=== PATIENT | male | born 1980 | race Asian ===

== ENCOUNTER 2017-02-23 19:28 | Emergency (ER) | payer BC ==
[2017-02-23 19:38] VITALS: BP 116/68
--- NOTE | 2017-02-23 19:44 | UC ---
Skin Complaint HPI - HPI Summary HPI Summary: patches of itchy dry skin on neck similar episode in the past rx with clobetasol with good effect - History of Current Complaint Chief Complaint: UCRash Time Seen by Provider: 02/23/17 19:33 Stated Complaint: RASH ON NECK Hx Obtained From: Patient Onset/Duration: Gradual Onset, Lasting Days, Still Present Timing: Constant Onset Severity: Mild Current Severity: Mild Location: Discrete Aggravating: Nothing Alleviating: Nothing Associated Signs & Symptoms: Positive: Negative - Allergy/Home Medications Allergies/Adverse Reactions: Allergies Allergy/AdvReac Type Severity Reaction Status Date / Time No Known Allergies Allergy Verified 02/23/17 19:38 Review of Systems Constitutional: Negative Skin: Rash - patches of dry red flaky skin on neck and upper shoulders Eyes: Negative ENT: Negative Respiratory: Negative Cardiovascular: Negative Gastrointestinal: Negative Genitourinary: Negative Motor: Negative Neurovascular: Negative Musculoskeletal: Negative Neurological: Negative Psychological: Negative All Other Systems Reviewed And Are Negative: Yes PMH/Surg Hx/FS Hx/Imm Hx Previously Healthy: Yes - Surgical History Surgical History: None - Family History Known Family History: Positive: None - Social History Occupation: Student Lives: With Family Alcohol Use: None Substance Use Type: None Smoking Status (MU): Never Smoked Tobacco Physical Exam Triage Information Reviewed: Yes Appearance: Well-Appearing, No Pain Distress, Well-Nourished Vital Signs: Initial Vital Signs Temp 99.1 F 02/23/17 19:35 Pulse 85 02/23/17 19:35 Resp 16 02/23/17 19:35 BP 116/68 02/23/17 19:35 Pulse Ox 98 02/23/17 19:35 Vital Signs Reviewed: Yes Eye Exam: Normal Eyes: Positive: Conjunctiva Clear ENT Exam: Normal ENT: Positive: Normal ENT inspection, Hearing grossly normal. Negative: Nasal congestion, Nasal drainage, Trismus, Muffled/hoarse voice Dental Exam: Normal Neck exam: Normal Neck: Positive: Supple, Nontender Respiratory Exam: Normal Respiratory: Positive: Chest non-tender, No respiratory distress, No accessory muscle use Cardiovascular Exam: Normal Cardiovascular: Positive: RRR, Pulses Normal, Brisk Capillary Refill Musculoskeletal Exam: Normal Musculoskeletal: Positive: Strength Intact, ROM Intact, No Edema Neurological Exam: Normal Neurological: Positive: Alert, Muscle Tone Normal Psychological Exam: Normal Skin Exam: Normal Skin: Positive: rashes Course/Dx - Course Course Of Treatment: mild soap and water wash, clobetasol BID - Differential Diagnoses - Skin Complaint Differential Diagnoses: Cellulitis, Contact Dermatitis, Tinea - Diagnoses Provider Diagnoses: Atopic Dermititis Discharge - Discharge Plan Condition: Stable Disposition: HOME Prescriptions: Clobetasol 0.05% OINT* 1 applic TOPICAL BID #60 gm Patient Education Materials: Eczema (ED) Referrals: Wilfredo Melendez MD [Medical Doctor] - If Needed
== END 2017-02-23 19:55 | disposition home or self-care (01) ==
LOC: UCEAST 19:28
DX: L20.9 Atopic dermatitis, unspecified (principal)
CPT/HCPCS: 99202; G0463

== ENCOUNTER 2018-01-29 17:14 | Emergency (ER) | payer BC ==
--- NOTE | 2018-01-29 17:35 | UC ---
Respiratory Complaint HPI - HPI Summary HPI Summary: cough for 5 days --has been using Turkish medicine (he does not know what) that did not help--daughter has similar c/o and seen pcp dx with uri--,patient denies fever, sinus pain or vomiting - History of Current Complaint Chief Complaint: UCRespiratory Stated Complaint: COUGH Time Seen by Provider: 01/29/18 17:28 Hx Obtained From: Patient Onset/Duration: Sudden Onset, Lasting Days - 5, Still Present Timing: Constant Character: Cough: Nonproductive Aggravating Factors: Nothing Alleviating Factors: Nothing Associated Signs And Symptoms: Positive: URI - Allergies/Home Medications Allergies/Adverse Reactions: Allergies Allergy/AdvReac Type Severity Reaction Status Date / Time No Known Allergies Allergy Verified 02/23/17 19:38 PMH/Surg Hx/FS Hx/Imm Hx Previously Healthy: Yes - Surgical History Surgical History: None - Family History Known Family History: Positive: None - Social History Occupation: Employed Full-time Lives: With Family Alcohol Use: None Substance Use Type: None Smoking Status (MU): Never Smoked Tobacco Review of Systems Constitutional: Negative Skin: Negative Eyes: Negative ENT: Negative Respiratory: Cough Cardiovascular: Negative Gastrointestinal: Negative Genitourinary: Negative Motor: Negative Neurovascular: Negative Musculoskeletal: Negative Neurological: Negative Psychological: Negative Is Patient Immunocompromised?: No All Other Systems Reviewed And Are Negative: Yes Physical Exam Triage Information Reviewed: Yes Appearance: Well-Appearing, No Pain Distress, Well-Nourished Vital Signs Reviewed: Yes Eye Exam: Normal Eyes: Positive: Conjunctiva Clear ENT Exam: Normal ENT: Positive: Normal ENT inspection, Hearing grossly normal, Pharynx normal, TMs normal, Uvula midline. Negative: Nasal congestion, Nasal drainage, Trismus , Muffled voice, Hoarse voice, Sinus tenderness Dental Exam: Normal Neck exam: Normal Neck: Positive: Supple, Nontender, No Lymphadenopathy Respiratory Exam: Normal Respiratory: Positive: Chest non-tender, Lungs clear, Normal breath sounds, No respiratory distress, No accessory muscle use Cardiovascular Exam: Normal Cardiovascular: Positive: RRR, No Murmur, Pulses Normal, Brisk Capillary Refill Musculoskeletal Exam: Normal Musculoskeletal: Positive: Strength Intact, ROM Intact, No Edema Neurological Exam: Normal Neurological: Positive: Alert, Muscle Tone Normal Psychological Exam: Normal Skin Exam: Normal Respiratory Course/Dx - Course Course Of Treatment: increase fluids, zyrtec and tessalon for sx relief follow with pcp prn (referral made) - Differential Dx/Diagnosis Provider Diagnoses: URI Discharge - Sign-Out/Discharge Documenting (check all that apply): Patient Departure - Discharge Plan Condition: Stable Disposition: HOME Prescriptions: Benzonatate CAP* [Tessalon 100 MG CAP*] 100 - 200 mg PO TID PRN #40 cap PRN Reason: Cough Cetirizine* [ZyrTEC 10 MG TAB*] 10 mg PO DAILY #14 tab Patient Education Materials: Cold Symptoms (ED) Referrals: [facility] [place] [facility] [Outside] - If Needed - Billing Disposition and Condition Condition: STABLE Disposition: Home
[2018-01-29 17:38] VITALS: BP 102/71
== END 2018-01-29 17:50 | disposition home or self-care (01) ==
LOC: UCEAST 17:14
DX: J06.9 Acute upper respiratory infection, unspecified (principal)
CPT/HCPCS: 99212; G0463

== ENCOUNTER 2018-04-01 17:37 | Emergency (ER) | payer BC ==
--- NOTE | 2018-04-01 17:42 | UC ---
Ear Complaint HPI - HPI Summary HPI Summary: 37 y/o male presents to the urgent care c/o Rt ear pain since this afternoon w / some yellowish discharge when he tried to cleaned w/ a swab. Pain is 3/10 associated w/ a headache and fullness sensation. Pt denies dizziness, decrease hearing, fever, SOB, chest pain, abdominal pain, N/V/D. Pt has not taking anything to alleviate symptoms. - History of Current Complaint Stated Complaint: EAR COMPLAINT Time Seen by Provider: 04/01/18 17:40 Hx Obtained From: Patient Onset/Duration: Gradual Onset, Lasting Days, Still Present Severity Initially: Mild Severity Currently: Mild Pain Intensity: 3 Pain Scale Used: 0-10 Numeric Aggravating Factors: Other - touch Alleviating Factors: Nothing Associated Signs/Symptoms: Positive: Discharge - Allergies/Home Medications Allergies/Adverse Reactions: Allergies Allergy/AdvReac Type Severity Reaction Status Date / Time No Known Allergies Allergy Verified 02/23/17 19:38 Home Medications: Home Medications NK [No Home Medications Reported] 04/01/18 [History Confirmed 04/01/18] PMH/Surg Hx/FS Hx/Imm Hx Previously Healthy: Yes - PT denies PMHX - Surgical History Surgical History: None - Family History Family History: Lung Cancer - Social History Occupation: Employed Full-time Lives: With Family Alcohol Use: None Substance Use Type: None Smoking Status (MU): Never Smoked Tobacco Review of Systems Constitutional: Negative Skin: Negative Eyes: Negative ENT: Ear Ache - Rt ear pain w/ yellowish discharge Respiratory: Negative Cardiovascular: Negative Gastrointestinal: Negative Genitourinary: Negative Motor: Negative Neurovascular: Negative Musculoskeletal: Negative Neurological: Headache Psychological: Negative Is Patient Immunocompromised?: No All Other Systems Reviewed And Are Negative: Yes Physical Exam - Summary Physical Exam Summary: Vital signs: reviewed General: well developed, well nourished male sitting in the examining table w/o any apparent distress Skin: [place], warm and dry, no evidence of atopic dermatitis, psoriasis, seborrhea. HEENT: -Head: atraumatic, non tender; no scalp dermatitis. -Eyes: sclera and conjunctiva clear, PERRLA, EOMI -Ears: no pre- or postauricular lymphadenopathy or erythema; RT external ear canal with erythema and yellowish purulent discharge, pinna tenderness on palpation, Rt TM WNL, LF external ear canal clear and LF TM WNL. TMs normal w/ out bulging or retraction. Good light reflex. No fluid level, vesicles, or bullae. No perforation. -Nose/Face: erythematous and edematous nasal mucosa with clear rhinorrhea, no frontal or maxillary sinus tender to palpation. -Mouth/Throat: Mucous membrane moist, posterior pharynx clear, no erythema or exudates. Neck: supple, FROM, nontender, no lymphadenopathy, no meningismus. Chest: Clear to auscultation, normal breath sounds Abd: soft, Bowel sounds active, Nontender. Back: no spinal or CVAT Neuro: A&O x4, GCS 15, no focal neuro deficits, normal behavior for age. Triage Information Reviewed: Yes Ear Complaint Course/Dx - Course Course Of Treatment: 37 y/o male presents to the urgent care c/o Rt ear pain since this afternoon w/ some yellowish discharge when he tried to cleaned w/ a swab. Pain is 3/10 associated w/ a headache and fullness sensation. Pt denies dizziness, decrease hearing, fever, SOB, chest pain, abdominal pain, N/V/D. Pt has not taking anything to alleviate symptoms. Hx otbatined. pt w/ Rt otitis externa on examination. Pt given Cortisporin otic drops at the clinic since pharnacy is close today. Advised to take ibuprofen PO OTC for pain. If symptoms do not improve or worsen to return to the urgent care or f/u with PCP for further management. Pt understood and agreed with D/C instructions. - Differential Dx/Diagnosis Differential Diagnosis/HQI/PQRI: Cerumen Impaction, Otitis Externa, Otitis Media , Perforated TM, URI Provider Diagnoses: 1- Rt otitis externa. 2- Otalgia Discharge - Sign-Out/Discharge Documenting (check all that apply): Patient Departure - D/C home All imaging exams completed and their final reports reviewed: No Studies - Discharge Plan Condition: Stable Disposition: HOME Patient Education Materials: Otitis Externa (ED) Referrals: [facility] [place] [facility] [Outside] - 3 Days Additional Instructions: 1-Please apply otic antibiotic on your Rt ear as directed. 2-Take ibuprofen PO q6-8hrs after meals for pain. 3-If symptoms do not improve or worsen please f/u with your PCP in 3 days or return to the urgent care for further evaluation and treatment. - Billing Disposition and Condition Condition: STABLE Disposition: Home
[2018-04-01 17:47] VITALS: BP 112/77
[2018-04-01] MEDS ORDERED: Neomyc/Polym/HC 1% OTIC SUSP* **OTIC RIGHT EAR ONE (17:58)
[2018-04-01] MEDS ORDERED: Neomyc/Polym/HC 1% OTIC SUSP* **OTIC ONE (17:58)
== END 2018-04-01 18:11 | disposition home or self-care (01) ==
LOC: UCEAST 17:37
DX: H60.91 Unspecified otitis externa, right ear (principal); H92.01 Otalgia, right ear
CPT/HCPCS: 99212; A9270-GY; G0463

== ENCOUNTER 2018-05-09 17:51 | Emergency (ER) | payer BC ==
[2018-05-09 18:28] VITALS: BP 110/75
--- NOTE | 2018-05-09 19:51 | UC ---
Ear Complaint HPI - HPI Summary HPI Summary: 38-year-old male presents with right ear pain. States he placed a Q-tip into his ear and noticed some pain and blood. He was seen on 04/01/2018 for similar complaints at this facility. He was diagnosed with an external otitis and placed on Cortisporin ear drops 7 days with improvement in his symptoms. Denies fever, chills, hearing loss, nasal congestion, nasal drainage, sore throat, cough, dizziness, or vertigo. - History of Current Complaint Chief Complaint: UCEar Stated Complaint: EAR PAIN Time Seen by Provider: 05/09/18 19:30 Hx Obtained From: Patient Onset/Duration: Sudden Onset Severity Initially: Moderate Severity Currently: None Pain Intensity: 0 Aggravating Factors: Nothing Alleviating Factors: Nothing Associated Signs/Symptoms: Positive: Discharge, Trauma to Ear. Negative: Hearing Loss, Foreign Body Sensation, URI Symptoms - Allergies/Home Medications Allergies/Adverse Reactions: Allergies Allergy/AdvReac Type Severity Reaction Status Date / Time No Known Allergies Allergy Verified 05/09/18 18:28 PMH/Surg Hx/FS Hx/Imm Hx Previously Healthy: Yes - Denies significant PMH - Surgical History Surgical History: None - Family History Family History: Lung Cancer - Social History Occupation: Employed Full-time Lives: With Family Alcohol Use: None Substance Use Type: None Smoking Status (MU): Never Smoked Tobacco Review of Systems Constitutional: Negative Eyes: Negative ENT: Ear Ache Respiratory: Negative Cardiovascular: Negative Gastrointestinal: Negative Neurological: Negative Is Patient Immunocompromised?: No All Other Systems Reviewed And Are Negative: Yes Physical Exam Triage Information Reviewed: Yes Appearance: Well-Appearing, No Pain Distress, Well-Nourished Vital Signs: Initial Vital Signs Temp 98.9 F 05/09/18 18:25 Pulse 73 05/09/18 18:25 Resp 12 05/09/18 18:25 BP 110/75 05/09/18 18:25 Pulse Ox 98 05/09/18 18:25 Vital Signs Reviewed: Yes Eyes: Positive: Conjunctiva Clear. Negative: Discharge ENT: Positive: Hearing grossly normal, Pharynx normal, Uvula midline, Other - Left TM opaque with good cone of light. Right external ear canal erythematous with mild edema. There is a small area of excoriation to the floor of the canal with some dried blood. Right TM intact. There is severe scarring to the TM. No erythema or effusion noted.. Negative: Nasal congestion, Nasal drainage, Tonsillar swelling, Tonsillar exudate, Sinus tenderness Ear Complaint Course/Dx - Course Course Of Treatment: 38 year old male with onset of right ear pain after inserting a Q-tip into his ear. He noticed blood on the Q-tip when he removed it from his ear. Exam revealed an eternal otitis of the right ear canal with excoriation and dried blood to the floor of the canal. TM was intact with significnat scarring present. He had Cortisporin drops with him that were prescribed at a previous visit on 04/01/2018 that were not and in a sufficient amount for treatment. He is to instill 4 drops in to the right ear 3 times a day for 7 days. He is to follow up with [facility] if symptoms do not improve. Warning symptoms reviewed with patient. Verbalizes understanding and agrees with POC. - Differential Dx/Diagnosis Differential Diagnosis/HQI/PQRI: Otitis Externa, Otitis Media, Perforated TM Provider Diagnoses: Otitis externa right ear Discharge - Sign-Out/Discharge Documenting (check all that apply): Patient Departure All imaging exams completed and their final reports reviewed: No Studies - Discharge Plan Condition: Stable Disposition: HOME Patient Education Materials: Otitis Externa (ED) Referrals: No Primary Care Phys,NOPCP [Primary Care Provider] - [facility] [Provider Group] - 7 Days (If no improvement in symptoms. Call for appointment.) Additional Instructions: You have a mild infection of the right ear canal. I did notice some scarring to the right ear drum likely from a past injury or infection in the ear. Do not put anything in your ear as you can cause an injury to the ear drum. Use the Cortisporin ear drops that were provided to you at your last visit. Instill 4 drops into the right ear 3 times a day for 7 days. May use an over the counter pain medication such as acetaminophen (Tylenol) or ibuprofen (Advil, Motrin) according to directions as needed for pain. Follow up with [facility] in 7 days if no improvement in symptoms. Seek immediate medical attention in the emergency room if you develop fever greater than 100.5 F, have any more drainage or bleeding from your ear, you lose hearing in the ear, become dizzy, have pain that is not managed with pain medication, or any worsening of symptoms. - Billing Disposition and Condition Condition: STABLE Disposition: Home
== END 2018-05-09 20:15 | disposition home or self-care (01) ==
LOC: UCEAST 17:51
DX: H60.91 Unspecified otitis externa, right ear (principal)
CPT/HCPCS: 99211; G0463

== ENCOUNTER 2018-07-09 14:56 | Emergency (ER) | payer BC ==
[2018-07-09 15:16] VITALS: BP 104/64
--- NOTE | 2018-07-09 15:56 | ED ---
Throat Pain/Nasal Congestion - HPI Summary HPI Summary: 38 yo male presents with left ear pain with left tragal tenderness on and off x 3 months, started in March- went to ER received ear drops, went to ENT last month due to recurrent ear pain, gave him hydrocortisone cream to apply to left external ear canal. Denies changes in hearing or discharge. Denies f/c/prodrome of URI - History of Current Complaint Chief Complaint: UCEar Time Seen by Provider: 07/09/18 15:05 Hx Obtained From: Patient Onset/Duration: Sudden Onset Severity: Moderate Cough: None - Epiglottits Risk Factors Epiglottis Risk Factors: Negative - Allergies/Home Medications Allergies/Adverse Reactions: Allergies Allergy/AdvReac Type Severity Reaction Status Date / Time No Known Allergies Allergy Verified 07/09/18 15:11 Home Medications: Home Medications Hydrocortisone [Cortizone-10] 1 cre EX DAILY 07/09/18 [History Confirmed ] PMH/Surg Hx/FS Hx/Imm Hx Previously Healthy: Yes Endocrine/Hematology History: Denies: Hx Diabetes, Hx Thyroid Disease Cardiovascular History: Denies: Hx Hypertension Respiratory History: Denies: Hx Asthma, Hx Chronic Obstructive Pulmonary Disease (COPD) GI History: Denies: Hx Ulcer Infectious Disease History: No Infectious Disease History: Denies: Hx Clostridium Difficile, Hx Hepatitis, Hx Human Immunodeficiency Virus (HIV), Hx of Known/Suspected MRSA, Hx Shingles, Hx Tuberculosis, Hx Known/ Suspected VRE, Hx Known/Suspected VRSA, History Other Infectious Disease, Traveled Outside the [place] in Last 30 Days - Family History Known Family History: Positive: None Family History: Lung Cancer - Social History Alcohol Use: None Substance Use Type: Reports: None Smoking Status (MU): Never Smoked Tobacco Review of Systems Constitutional: Negative Eyes: Negative Positive: Ear Ache. Negative: Sore Throat, Nasal Discharge Cardiovascular: Negative Respiratory: Negative Gastrointestinal: Negative Genitourinary: Negative Musculoskeletal: Negative Skin: Negative Neurological: Negative Psychological: Normal All Other Systems Reviewed And Are Negative: Yes Physical Exam - Summary Physical Exam Summary: Vital Signs Reviewed: Yes Skin: Positive: Warm Head/Face: Positive: Normal Head/Face Inspection Eyes: Positive: Normal ENT: Positive: OLd right TM perforation, mild left TM opacity w/o effusion, + left tragal tenderness, no tenderness on manipulation of pinna Neck: Positive: Supple Respiratory/Lung Sounds: Positive: Clear to Auscultation Cardiovascular: Positive: Normal, RRR, S1, S2 Abdomen Description: Positive: Nontender Musculoskeletal: Positive: Normal Neurological: Positive: Normal Psychiatric: Positive: Normal, Affect/Mood Appropriate Triage Information Reviewed: Yes Vital Signs On Initial Exam: Initial Vitals Temp Pulse Resp BP Pulse Ox 36.9 C 90 16 104/64 95 07/09/18 15:11 07/09/18 15:11 07/09/18 15:11 07/09/18 15:11 07/09/18 15:11 Diagnostics - Vital Signs Vital Signs Temp Pulse Resp BP Pulse Ox 07/09/18 15:11 36.9 C 90 16 104/64 95 - Laboratory Lab Statement: Any lab studies that have been ordered have been reviewed, and results considered in the medical decision making process. EENT Course/Dx - Course Assessment/Plan: CT maxillofacial- Extensive sinus mucosal inflammatory disease , with air-fluid level in sphenoid sinus, no aprreciable pathology of the temporal bones B/L. Osseous labyrinth and middle ear cavities are unremarkable bilaterally without fluid within the fluid cavity. Eval of TM is limited on CT. There is extensive pneumaization of the temporal bones B/L. Gave copy of CT sinuses and radiolgy report so that pt can f/u in 1 week if sx persist. Sinusitis- maxilary and sphenoid- will tx with augmentin 875mg BID x 10 days - Diagnoses Provider Diagnoses: Otalgia of left ear, Maxillary sinusitis, Otitis externa Discharge - Sign-Out/Discharge Documenting (check all that apply): Patient Departure All imaging exams completed and their final reports reviewed: Yes - Discharge Plan Condition: Stable Disposition: HOME Prescriptions: Amoxicillin/Clavulanate TAB* [Augmentin TAB 875*] 875 mg PO BID 10 Days #20 tab Ciproflox/Dexameth OTIC.SUSP* [Ciprodex OTIC.SUSP*] 3 drop .SEE ORDER BID 7 Days #1 btl Patient Education Materials: Sinusitis (ED), Ear Infection (ED) Referrals: No Primary Care Phys,NOPCP [Primary Care Provider] - Additional Instructions: take medication as directed and follow up with ear doctor in 1 week - Billing Disposition and Condition Condition: STABLE Disposition: Home
== END 2018-07-09 16:40 | disposition home or self-care (01) ==
LOC: UCEAST 14:56
DX: H60.92 Unspecified otitis externa, left ear (principal); H92.02 Otalgia, left ear; J32.0 Chronic maxillary sinusitis
CPT/HCPCS: 70486; 99212; G0463

== ENCOUNTER 2018-07-15 16:00 | Emergency (ER) | payer BC ==
[2018-07-15 16:06] VITALS: BP 115/72
[2018-07-15] MEDS ORDERED: Mupirocin 2% OINT* TUBE TOPICAL ONE (16:19)
--- NOTE | 2018-07-15 16:20 | UC ---
Ear Complaint HPI - HPI Summary HPI Summary: painful sore that has been bleeding on left ear for a couple of days - History of Current Complaint Chief Complaint: UCGeneralIllness Stated Complaint: EAR COMPLAINT Time Seen by Provider: 07/15/18 16:14 Hx Obtained From: Patient Onset/Duration: Sudden Onset Pain Intensity: 5 Pain Scale Used: 0-10 Numeric Aggravating Factors: Nothing Alleviating Factors: Nothing - Allergies/Home Medications Allergies/Adverse Reactions: Allergies Allergy/AdvReac Type Severity Reaction Status Date / Time No Known Allergies Allergy Verified 07/15/18 16:06 PMH/Surg Hx/FS Hx/Imm Hx Previously Healthy: Yes - Surgical History Surgical History: None - Family History Known Family History: Positive: None Family History: Lung Cancer - Social History Occupation: Employed Full-time Lives: With Family Alcohol Use: None Substance Use Type: None Smoking Status (MU): Never Smoked Tobacco Review of Systems All Other Systems Reviewed And Are Negative: Yes Constitutional: Positive: Negative Skin: Positive: Negative Eyes: Positive: Negative ENT: Positive: Negative, Ear Ache - left ear is painful Respiratory: Positive: Negative Cardiovascular: Positive: Negative Gastrointestinal: Positive: Negative Genitourinary: Positive: Negative Motor: Positive: Negative Neurovascular: Positive: Negative Musculoskeletal: Positive: Negative Neurological: Positive: Negative Psychological: Positive: Negative Is Patient Immunocompromised?: No Physical Exam Triage Information Reviewed: Yes Appearance: Well-Appearing, No Pain Distress, Well-Nourished Vital Signs: Initial Vital Signs Temp 98.7 F 07/15/18 16:03 Pulse 100 07/15/18 16:03 Resp 16 07/15/18 16:03 BP 115/72 07/15/18 16:03 Pulse Ox 97 07/15/18 16:03 Vital Signs Reviewed: Yes Eye Exam: Normal Eyes: Positive: Conjunctiva Clear ENT Exam: Normal ENT: Positive: Normal ENT inspection, Hearing grossly normal, Pharynx normal, TMs normal, Other - small lesion intertragal notch left ear minor capillary oozing. Negative: Nasal congestion, Trismus, Muffled voice, Hoarse voice Dental Exam: Normal Neck exam: Normal Neck: Positive: Supple, Nontender Respiratory Exam: Normal Respiratory: Positive: Chest non-tender, No respiratory distress, No accessory muscle use Cardiovascular Exam: Normal Cardiovascular: Positive: RRR, Pulses Normal, Brisk Capillary Refill Musculoskeletal Exam: Normal Musculoskeletal: Positive: Strength Intact, ROM Intact, No Edema Neurological Exam: Normal Neurological: Positive: Alert, Muscle Tone Normal Psychological Exam: Normal Skin: Positive: Other - lesion left intertragal notch Ear Complaint Course/Dx - Course Course Of Treatment: soap and water wash---bactroban, warm compress follow with pcp prn - Differential Dx/Diagnosis Provider Diagnosis: Lesion of left external ear Discharge - Sign-Out/Discharge Documenting (check all that apply): Patient Departure All imaging exams completed and their final reports reviewed: No Studies - Discharge Plan Condition: Stable Disposition: HOME Patient Education Materials: Wound Infection (ED), Acute Wound Care (ED) Referrals: [facility] [Outside] - If Needed - Billing Disposition and Condition Condition: STABLE Disposition: Home
== END 2018-07-15 16:27 | disposition home or self-care (01) ==
LOC: UCEAST 16:00
DX: H93.8X2 Other specified disorders of left ear (principal)
CPT/HCPCS: 99212; G0463